=== PATIENT | female | born 1965 | race Two or more races ===

== ENCOUNTER 2018-03-09 08:40 | Outpatient (CLI) | payer OTHER | END 2018-03-09 10:37 | disposition home or self-care (01) | LOC: LAB 08:40 | DX: D64.9 Anemia, unspecified (principal); I10 Essential (primary) hypertension; E03.9 Hypothyroidism, unspecified ==

== ENCOUNTER 2018-03-09 09:13 | Outpatient (CLI) | payer OTHER | END 2018-03-09 09:25 | disposition home or self-care (01) | LOC: SONOGRAMA 09:13 | DX: R10.9 Unspecified abdominal pain (principal) ==

== ENCOUNTER 2018-06-08 08:28 | Outpatient (CLI) | payer OTHER | END 2018-06-08 08:30 | disposition home or self-care (01) | LOC: LAB 08:28 | DX: E03.4 Atrophy of thyroid (acquired) (principal) ==

== ENCOUNTER → 2021-03-18 | Outpatient (CLI) | payer OTHER | END | disposition home or self-care (01) | LOC: TOM 12:57 | PROVIDERS: ATTEND Internal Medicine Pulmonary Disease | DX: J45.40 Moderate persistent asthma, uncomplicated (principal); R06.02 Shortness of breath ==

== ENCOUNTER 2023-02-06 07:19 | Outpatient (CLI) | payer OTHER | END 2023-02-06 07:20 | disposition home or self-care (01) | LOC: NUCLEAR 07:19 | PROVIDERS: ATTEND Internal Medicine | DX: I65.22 Occlusion and stenosis of left carotid artery (principal); R07.9 Chest pain, unspecified; E78.2 Mixed hyperlipidemia; I20.8 Other forms of angina pectoris ==

== ENCOUNTER 2025-04-13 07:47 | Outpatient (CLI) | payer OTHER | END 2025-04-13 07:49 | disposition home or self-care (01) | LOC: SONOGRAMA 07:47 | PROVIDERS: ATTEND Internal Medicine | DX: C73 Malignant neoplasm of thyroid gland (principal); R22.1 Localized swelling, mass and lump, neck; E04.2 Nontoxic multinodular goiter ==